=== PATIENT | male | born 1970 | race Caucasian/White ===

== ENCOUNTER 2019-12-18 12:27 | Emergency (ER) | payer OTHER ==
[~2019-12-18] VITALS: Ht 172.7 cm; Wt 81.8 kg
[~2019-12-18 12:27] MED LIST: IBUP-2492 PO
[2019-12-18 14:04] LABS: BASOPHILS % (AUTO) 0.4 % (0.0-2.0); EOSINOPHILS % (AUTO) 0.2 % (1.0-6.0); HEMATOCRIT 44.5 % (41-53); HEMOGLOBIN 14.7 g/dL (13.5-17.5); LYMPHOCYTES # (AUTO) 2.3 K/uL (1.0-4.8); LYMPHOCYTES % (AUTO) 16.3 % (22.0-44.0); MEAN CORPUSCULAR HEMOGLOBIN 29.7 pg (26.0-34.0); MEAN CORPUSCULAR HGB CONC 33.1 G/dL (31.0-37.0); MEAN CORPUSCULAR VOLUME 90 fL (80-100); MONOCYTES # (AUTO) 1.2 K/uL (0.1-1.0); MONOCYTES % (AUTO) 8.4 % (2.0-9.0); NEUTROPHILS # (AUTO) 10.4 K/uL (1.8-7.7); NEUTROPHILS % (AUTO) 74.7 % (40.0-70.0); PLATELET COUNT (AUTO) 255 K/uL (150-450); RED BLOOD CELL COUNT(AUTO) 4.97 MIL/uL (4.50-5.90); RED CELL DISTRIBUTION WIDTH 13.3 % (11.5-14.5)
[2019-12-18] MEDS ORDERED: IBUPROFEN 400 MG TABLET PO ONE (14:30)
[2019-12-18 15:01] LABS: ANION GAP 12 mmol/L (8-16); CALCIUM, TOTAL 9.1 mg/dL (8.8-10.5); CARBON DIOXIDE 25 mmol/L (22-29); CHLORIDE 102 mmol/L (98-107); CREATININE 0.81 mg/dL (0.60-1.30); GLOMERULAR FILTR. RATE CALC > 60 mL/min (>60); GLUCOSE,RANDOM 99 mg/dL (70-110); POTASSIUM 4.1 mmol/L (3.5-5.1); SODIUM SERUM 139 mmol/L (136-145); UREA NITROGEN, BLOOD 8 mg/dL (7-18)
[2019-12-18 15:06] LABS: ALANINE AMINOTRANSFERASE 35 U/L (12-78); ALKALINE PHOSPHATASE 77 U/L (46-116); ASPARTATE AMINOTRANSFERASE 24 U/L (15-37); BILIRUBIN,TOTAL 0.6 mg/dL (0.1-1.0); TOTAL PROTEIN, SERUM 8.3 g/dL (6.4-8.2)
[2019-12-18] MEDS ORDERED: OxyCODONE HCL/ACETAMINOPHEN 5-325 MG TABLET PO ONE (15:45)
[2019-12-18 15:46] VITALS: BP 114/83
[2019-12-18] MEDS ORDERED: LIDOCAINE 5% TRANSDERMAL PATCH TD ONE (16:15)
== END 2019-12-18 16:32 | disposition home or self-care (01) ==
LOC: EMS 12:28
DX: M25.511 Pain in right shoulder (principal); Z88.6 Allergy status to analgesic agent
CPT/HCPCS: 93005

== ENCOUNTER 2022-09-08 17:00 | Emergency (ER) | payer OTHER ==
[~2022-09-08] VITALS: Ht 177.8 cm; Wt 90.9 kg
[2022-09-08 18:10] VITALS: BP 130/92
[2022-09-08] MEDS ORDERED: PERTUSS(ACELL),DIPH,TET VAC/PF 0.5 ML SYRINGE IM. ONE (18:30)
[2022-09-08] MEDS ORDERED: IBUP-1492 PO (19:17)
[2022-09-08] MEDS ORDERED: ACET-66 PO (19:17)
== END 2022-09-08 19:35 | disposition home or self-care (01) ==
LOC: EMS 17:09
DX: M79.662 Pain in left lower leg (principal); Z88.5 Allergy status to narcotic agent
CPT/HCPCS: 90471; 90715; 99283

== ENCOUNTER 2022-09-15 22:37 | Emergency (ER) | payer OTHER ==
[~2022-09-15] VITALS: Ht 177.8 cm; Wt 90.0 kg
[~2022-09-15 22:37] MED LIST changes: +ACET-66 PO; +IBUP-1492 PO; -IBUP-2492 PO
[2022-09-15 23:16] VITALS: BP 143/82
[2022-09-15] MEDS ORDERED: ACETAMINOPHEN 500 MG TABLET PO ONE (23:30)
== END 2022-09-15 23:43 | disposition home or self-care (01) ==
LOC: EMS 22:43
DX: M79.605 Pain in left leg (principal); Z88.6 Allergy status to analgesic agent
CPT/HCPCS: 99282; Z7502; Z7610